=== PATIENT | male | born 1985 | race African-American/Black ===

== ENCOUNTER 2018-05-23 19:35 | Emergency (ER) | payer OTHER ==
[2018-05-23] MEDS ORDERED: cloNIDine 0.1 MG Tab PO ONE (20:20)
--- NOTE | 2018-05-23 20:26 | EDM.PDOC ---
ED HPI GENERAL MEDICAL PROBLEM - General Chief Complaint: General Stated Complaint: SYMPTONS OF HIGH BLOOD PRESSURE Time Seen by Provider: 05/23/18 19:49 Source of Information: Reports: Patient History Limitations: Reports: No Limitations - History of Present Illness INITIAL COMMENTS - FREE TEXT/NARRATIVE: HISTORY AND PHYSICAL: History of present illness: Patient is a 33-year-old male who presents to the emergency room today with concerns of high blood pressure. He states that weeks ago he had seen his primary care provider and informed he had high blood pressure and problems with his liver. He states that he turned to work last week even though his PCP had encouraged him to get his blood pressure better managed before returning. He has been checking his blood pressure while working over the past week and has been running 170's to 190's over 110's to 120's. He has been taking Norvasc 2.5mg once daily. He states this has improved his blood pressure, but is still concerned that it is high. He has dizziness and mild headaches over the past 1- 2 months. Denies any light or noise sensitivity. He is here today as his employer requested he be evaluated. Patient states that he wants to return to [place] to continue his medical care with his primary care provider. He denies any fever, chills, chest pain, shortness of breath or cough. Denies any abdominal pain, nausea, vomiting, diarrhea or constipation. He denies any change in vision, syncope or near syncope. Denies any recent head injury, trauma or falls. Review of systems: As per history of present illness and below otherwise all systems reviewed and negative. Past medical history: As per history of present illness and as reviewed below otherwise noncontributory. Surgical history: As per history of present illness and as reviewed below otherwise noncontributory. Social history: No reported history of drug or alcohol abuse. Family history: As per history of present illness and as reviewed below otherwise noncontributory. Physical exam: General: Well-developed and well-nourished 33-year-old -[place] male. Alert and oriented. Nontoxic appearing and in no acute distress. HEENT: Atraumatic, normocephalic, pupils equal and reactive bilaterally, negative for conjunctival pallor or scleral icterus, mucous membranes moist, throat clear, neck supple, nontender, trachea midline. No drooling or trismus noted. No meningeal signs Lungs: Clear to auscultation, breath sounds equal bilaterally, chest nontender. Heart: S1S2, regular rate and rhythm without overt murmur Abdomen: Soft, nondistended, nontender. Negative for masses or hepatosplenomegaly. Negative for costovertebral tenderness. Pelvis: Stable nontender. Genitourinary: Deferred. Rectal: Deferred. Skin: Intact, warm, dry. No lesions or rashes noted. Extremities: Atraumatic, negative for cords or calf pain. Neurovascular unremarkable. Neuro: Awake, alert, oriented. Cranial nerves II through XII unremarkable. Cerebellum unremarkable. Motor and sensory unremarkable throughout. Exam nonfocal. Notes: Patient states he was informed that he had "liver failure" and high blood pressure. He states that his primary care provider did not explain this in detailed. He was put on Norvasc 2.5mg once daily. He has been on this anti- hypertensive medication for approximately 3 weeks. Patient states that he is unsure of the details behind the issues with his liver. He informed his employer that he wanted to return to [place] to complete his medical care with his primary care provider, as he still has headache and dizziness (on going over 1 month). He states did call his primary care provider who states he would see him on Saturday. Since primary care provider did encourage him to get the appropriate paperwork so he could be released from work. I did encourage and offer to do lab work at this time, which he declines. He states that his employer required him to come to the emergency room for documentation prior to being allowed to return home. We discussed the need for immediate follow up with his PCP, as he is declining any form of diagnostics here. He voices understanding, states he will return to the ED if symptoms worsen or new symptoms develop. He states he is flying to [place] tomorrow and will see his PCP on Saturday. Diagnostics: [employer]: Clonidine 0.1mg Prescription: None Impression: Encounter for Medical Screening History of Hypertension Plan: 1. Take your home medications as directed 2. Please follow up with your primary care provider in the next 1-2 days. Return to the ED as needed and as discussed. Definitive disposition and diagnosis as appropriate pending reevaluation and review of above. Headache Pain Score (Numeric/FACES): 6 - Related Data Allergies Allergy/AdvReac Type Severity Reaction Status Date / Time No Known Allergies Allergy Verified 05/23/18 19:56 Home Meds: Home Meds Naproxen Sodium 550 mg PO BID 05/23/18 [History] amLODIPine Besylate [Amlodipine Besylate] 2.5 mg PO DAILY 05/23/18 [History] Past Medical History HEENT History: Reports: None Cardiovascular History: Reports: Hypertension Respiratory History: Reports: None Gastrointestinal History: Reports: None Genitourinary History: Reports: None Neurological History: Reports: None Psychiatric History: Reports: None Endocrine/Metabolic History: Reports: None Hematologic History: Reports: None Immunologic History: Reports: None Oncologic (Cancer) History: Reports: None Dermatologic History: Reports: None - Past Surgical History Head Surgeries/Procedures: Reports: None GI Surgical History: Reports: None Musculoskeletal Surgical History: Reports: Other (See Below) Other Musculoskeletal Surgeries/Procedures:: Back pain Social & Family History - Family History Family Medical History: Noncontributory GI: Reports: Other (See Below) Other GI Family History: recent dx of Liver failuer - Tobacco Use Smoking Status *Q: Never Smoker - Caffeine Use Caffeine Use: Reports: None - Recreational Drug Use Recreational Drug Use: No ED ROS GENERAL - Review of Systems Review Of Systems: ROS reveals no pertinent complaints other than HPI. ED EXAM, GENERAL - Physical Exam Exam: See Below (See dictation) Course - Vital Signs Last Recorded V/S: Last Vital Signs Temp 97.9 F 05/23/18 21:07 Pulse 75 05/23/18 21:07 Resp 16 05/23/18 21:07 BP 165/110 H 05/23/18 21:07 Pulse Ox 95 05/23/18 21:07 - Orders/Labs/Meds Meds: Medications Discontinued Medications Generic Name Dose Route Start Last Admin Trade Name Freq PRN Reason Stop Dose Admin Clonidine HCl 0.1 mg 05/23/18 20:20 05/23/18 20:26 Catapres PO 05/23/18 20:21 0.1 mg ONETIME ONE Administration Departure - Departure Time of Disposition: 21:10 Disposition: Home, Self-Care 01 Clinical Impression: Encounter for medical screening examination High blood pressure Qualifiers: Hypertension type: unspecified Qualified Code(s): I10 - Essential (primary) hypertension - Discharge Information Instructions: Hypertension Referrals: PCP,None [Primary Care Provider] - Forms: ED Department Discharge Additional Instructions: The following information is given to patients seen in the emergency department who are being discharged to home. This information is to outline your options for follow-up care. We provide all patients seen in our emergency department with a follow-up referral. The need for follow-up, as well as the timing and circumstances, are variable depending upon the specifics of your emergency department visit. If you don't have a primary care physician on staff, we will provide you with a referral. We always advise you to contact your personal physician following an emergency department visit to inform them of the circumstance of the visit and for follow-up with them and/or the need for any referrals to a consulting specialist. The emergency department will also refer you to a specialist when appropriate. This referral assures that you have the opportunity for follow-up care with a specialist. All of these measure are taken in an effort to provide you with optimal care, which includes your follow-up. Under all circumstances we always encourage you to contact your private physician who remains a resource for coordinating your care. When calling for follow-up care, please make the office aware that this follow-up is from your recent emergency room visit. If for any reason you are refused follow-up, please contact the [facility] Emergency Department at and asked to speak to the emergency department charge nurse. [facility] [address] [place], [place] [id number] [place] [address] 1. Continue to take your medications as directed. 2. See your primary care provider SATURDAY as we discussed. 3. Return to the ED as needed and as discussed.
== END 2018-05-23 21:15 | disposition home or self-care (01) ==
LOC: MW.ED 19:35
DX: I10 Essential (primary) hypertension (principal)
CPT/HCPCS: 99283; A9270